=== PATIENT | female | born 1950 | race Caucasian/White ===

== ENCOUNTER 2018-12-29 06:05 | Inpatient (IN) | payer MEDICARE, BC | END 2019-01-02 11:27 | disposition home or self-care (01) | LOC: PAS IN 06:05 → ORTHO 4S 14:15 | PROC: 0SRC0J9 Replacement of Right Knee Joint with Synthetic Substitute, Cemented, Open Approach (ICD-10-PCS; principal; 2018-12-29 09:05) | DX: M17.11 Unilateral primary osteoarthritis, right knee (principal); D62 Acute posthemorrhagic anemia ==

== ENCOUNTER 2022-04-08 07:02 | Inpatient (IN) | payer MEDICARE, BC ==
[2022-04-02 10:58] LABS: BASOPHILS % (AUTO) 0.7 % (0-1); EOSINOPHILS # (AUTO) 0.2 X10'3 (0-0.9); EOSINOPHILS % (AUTO) 3.5 % (0-6); LYMPHOCYTES # (AUTO) 1.6 X10'3 (1.1-4.8); LYMPHOCYTES % (AUTO) 30.7 % (21-51); MEAN CORPUSCULAR HGB CONC 33.3 g/dL (33.0-36.5); MEAN PLATELET VOLUME 8.4 FL (7.4-10.4); MONOCYTES # (AUTO) 0.5 X10'3 (0-0.9); MONOCYTES % (AUTO) 9.2 % (2-12); NEUTROPHILS # (AUTO) 2.9 X10'3 (1.8-7.7); NEUTROPHILS % (AUTO) 55.9 % (42-75); PRE OP HEMATOCRIT 42.7 % (35.0-45.0); PRE OP HEMOGLOBIN 14.2 g/dL (12.0-16.0); PRE OP PLATELET COUNT 243 X10'3 (140-440); RED BLOOD COUNT 4.45 X10'6 (4.20-5.60); RED CELL DISTRIBUTION WIDTH 13.6 % (11.5-14.5)
[2022-04-02 11:09] LABS: ALBUMIN 4.1 G/DL (3.4-5.0); ALBUMIN/GLOBULIN RATIO 1.1 (1.1-1.5); ALKALINE PHOSPHATASE 187 IU/L (46-116); BLOOD UREA NITROGEN 22 MG/DL (7-18); BUN/CREATININE RATIO 26.5 (6.6-38.0); CALCIUM 9.3 MG/DL (8.5-10.1); CHLORIDE 106 MMOL/L (99-107); CREATININE 0.83 MG/DL (0.40-0.90); PRE OP ALT 35 U/L (30-65); PRE OP ANION GAP 13 (8-16); PRE OP AST 29 U/L (10-37); PRE OP BILIRUB, TOTAL 0.5 MG/DL (0.0-1.0); PRE OP GLUCOSE 90 MG/DL (70-104); PRE OP POTASSIUM 3.9 MMOL/L (3.4-5.1); PRE OP SODIUM 144 MMOL/L (135-145); TOTAL CARBON DIOXIDE 25.1 MMOL/L (24-32); TOTAL PROTEIN 7.7 G/DL (6.4-8.2); eGFR 67 ML/MIN
[2022-04-08] VITALS (22 sets, daily range): BP systolic 124–175; BP diastolic 47–118
[~2022-04-08] VITALS: Ht 162.6 cm; Wt 99.8 kg
--- NOTE | 2022-04-08 05:30 | NUR ---
CSM: RADIAL AND PEDAL PULSES PALPABLE SKIN CDI, WARM TO TOUCH. PATIENT READ THE INFORMATION BOOKLET GIVEN.
[~2022-04-08 07:02] MED LIST: ACET-3414 PO; ASCO125T PO; ASPI-1265 PO; CBD OIL PO; CBD OINTMENT TD; CHOL200012 PO; IBUP-860 PO; NAPR220C62 PO; ceFAZolin inj. 2,000 MG in dextrose 5%-water 100 ML IV ONE; famotidine 20mg tablet PO ONE; ringers solution, lacted 1,000 ML IV SCH; tranexamic acid 650mg tablet PO ONE; vancomycin 1,500 MG in NS 300ml IV soln IV ONE
[2022-04-08] MEDS ORDERED: ketorolac trometh. 30mg/ml inj. ONE (09:49)
[2022-04-08] MEDS ORDERED: ROPIVAcaine 0.5% (5mg/ml) 30ml vial ONE ×2 (09:49→11:13)
[2022-04-08] MEDS ORDERED: acetaminophen 1,000mg/100ml IV 100 ML IV PRN (10:25)
[2022-04-08] MEDS ORDERED: ROPIVAcaine 0.2%/PF PUMP/bolus 545 ML INTERSCALE SCH (10:25)
[2022-04-08] MEDS ORDERED: morphine 4 MG/ML inj SYRINge IV PRN (10:25)
[2022-04-08] MEDS ORDERED: morphine 2 MG/ML inj. syringe IV PRN (10:25)
[2022-04-08] MEDS ORDERED: hydrALAZINE 20mg/ml inj. IV PRN (10:25)
[2022-04-08] MEDS ORDERED: meperidine/PF 25mg/ml syringe IV PRN ×3 (10:25)
[2022-04-08] MEDS ORDERED: ringers solution, lacted 1,000 ML IV SCH (10:25)
[2022-04-08] MEDS ORDERED: proCHLORperazine 10 MG/2 ml inj IV PRN (10:25)
[2022-04-08] MEDS ORDERED: labetalol 20mg/4ml (5mg/ml) syringe IV PRN (10:25)
[2022-04-08] MEDS ORDERED: ondansetron/PF 4mg/2ml inj IV PRN ×2 (10:25→12:55)
[2022-04-08] MEDS ORDERED: ROPIVAcaine 0.2% (10 MG/5 ML) BOLUS INJECTION INTERSCALE PRN (10:25)
[2022-04-08] MEDS ORDERED: fentaNYL/PF 50MCG/1 ML 2ML syringe ONE (10:32)
[2022-04-08] MEDS ORDERED: midazolam 1 mg/ML 2ml injection ONE (10:32)
[2022-04-08] MEDS ORDERED: LIDOcaine 2% 5ml jelly ONE (10:33)
[2022-04-08] MEDS ORDERED: LIDOcaine 2% (20mg/ml) 5ml vial ONE (11:13)
[2022-04-08] MEDS ORDERED: propofol inj 20 ML IV ONE (11:13)
[2022-04-08] MEDS ORDERED: LIDOcaine 1%/PF 5ML 10 MG/ML VIAL ONE (11:13)
[2022-04-08] MEDS ORDERED: ondansetron/PF 4mg/2ml inj ONE (11:23)
[2022-04-08] MEDS ORDERED: dexamethasone sod phosphate 4mg/ml inj. ONE (11:23)
[2022-04-08] MEDS ORDERED: CBD TD PRN (12:55)
[2022-04-08] MEDS ORDERED: acetaminophen 325mg tablet PO PRN (12:55)
[2022-04-08] MEDS ORDERED: oxyCODONE IR 5mg (immed. release) tablet PO PRN (12:55)
[2022-04-08] MEDS ORDERED: bisacodyl 10mg suppository rectal RC PRN (12:55)
[2022-04-08] MEDS ORDERED: [UNRECOGNIZED DRUG - OTHER] PO PRN (12:55)
[2022-04-08] MEDS ORDERED: HYDROmorphone 1 mg/ml syringe IV PRN (12:55)
[2022-04-08] MEDS ORDERED: magnesium hydroxide 30ml (MOM) UD suspension PO PRN (12:55)
[2022-04-08] MEDS ORDERED: HYDROmorphone inj. 0.5 MG/0.5 ML DISP.SYRIN IV PRN (12:55)
[2022-04-08] MEDS ORDERED: diphenhydrAMINE 25mg capsule PO PRN ×2 (12:55)
[2022-04-08] MEDS ORDERED: naloxone 0.4 mg/ml inj IV PRN (12:55)
[2022-04-08] MEDS ORDERED: ACETAMINOPHEN PO PRN (12:55)
[2022-04-08] MEDS ORDERED: CBD OIL PO SCH (12:55)
[2022-04-08] MEDS ORDERED: DIPHENHYDRAMINE PO PRN (12:55)
[2022-04-08] MEDS: potassium cl 20mEq in 1/2 NS 1,000 ML IV SCH ×2 (12:55→20:25)
--- NOTE | 2022-04-08 12:55 | NUR ---
Received from OR via ORTHO BED, accompanied by Anesthesiologist DR MUELLER and report given by Anesthesiolgist. PT PLACED ON O2 AND MONITOR, S/P RIGHT TSA, GENERAL ANESTHESIA AND RIGHT INTERSCALING BLOCK, GOOD CSMS TO RIGHT UPPER EXTREMITY, PT DENIES ANY PAIN OR NAUSEA, RIGHT SHOULDER DREESING CDI AND COVERED WITH WRAP AND ICE PACK IN PLACE, WILL ATTACH ONQ PUMP, RIGHT ARM IN SHOULDER IMMOBILIZER, VSS, WILL CONTINUE TO ASSESS.
--- NOTE | 2022-04-08 14:35 | NUR ---
Report called to receiving nurse. Transferred via ORTHO BED TO ROOM 4023B Belongings . Special Issues communicated to receiving nurse. PT DOING WELL, STILL DENIES PAIN OR NAUSEA, SITTING UP IN BED TOLERATING SIPS OF WATER.
[2022-04-08] MEDS: acetaminophen 325mg tablet PO SCH ×2 (16:59→20:25)
[2022-04-08] MEDS: ceFAZolin/D5W- 1GM premix 50 ML IV SCH (17:03)
--- NOTE | 2022-04-08 18:35 | NUR ---
Problems reprioritized. Patient report given, questions answered & plan of care reviewed with
[2022-04-08] MEDS ORDERED: vancomycin/NS 1 GM ADD-VANTAGE 250 ML IV SCH (20:00)
[2022-04-08] MEDS ORDERED: sennosides 8.6mg tablet PO SCH (21:00)
[2022-04-08] MEDS: oxyCODONE IR 5mg (immed. release) tablet PO PRN (21:32)
[2022-04-09] MEDS: ceFAZolin/D5W- 1GM premix 50 ML IV SCH (00:44)
[2022-04-09] MEDS: oxyCODONE IR 5mg (immed. release) tablet PO PRN ×3 (01:41→14:29)
[2022-04-09] MEDS: acetaminophen 325mg tablet PO SCH ×3 (01:41→14:00)
[2022-04-09 02:00] VITALS: BP 125/36
[2022-04-09 06:00] VITALS: BP 128/51
[2022-04-09 06:31] LABS: BASOPHILS % (AUTO) 0.1 % (0-1); EOSINOPHILS % (AUTO) 0 % (0-6); HEMATOCRIT 33.9 % (35.0-45.0); HEMOGLOBIN 11.5 g/dl (12.0-16.0); LYMPHOCYTES % (AUTO) 10.3 % (21-51); MEAN CORPUSCULAR HEMOGLOBIN 32.9 PG (27.0-31.0); MEAN CORPUSCULAR HGB CONC 34.1 g/dL (33.0-36.5); MEAN CORPUSCULAR VOLUME 96.8 FL (78-98); MEAN PLATELET VOLUME 8.3 FL (7.4-10.4); MONOCYTES # (AUTO) 1.2 X10'3 (0-0.9); MONOCYTES % (AUTO) 11.8 % (2-12); NEUTROPHILS # (AUTO) 7.9 X10'3 (1.8-7.7); NEUTROPHILS % (AUTO) 77.8 % (42-75); PLATELET COUNT 217 X10'3 (140-440); RED CELL DISTRIBUTION WIDTH 13.3 % (11.5-14.5); WHITE BLOOD COUNT 10.1 X10'3 (4.5-11.0)
--- NOTE | 2022-04-09 06:35 | NUR ---
Problems reprioritized. Patient report given, questions answered & plan of care reviewed with deepa Hinojosa.
[2022-04-09 07:13] LABS: ANION GAP 10 (8-16); CHLORIDE 111 MMOL/L (99-107); POTASSIUM 4.2 MMOL/L (3.5-5.1); SODIUM 144 MMOL/L (135-145); TOTAL CARBON DIOXIDE 23.3 MMOL/L (24-32)
[2022-04-09] MEDS ORDERED: non-formulary drug (Cholecalciferol (Vitamin D3) (Vitamin D3) 1 CAP) PO SCH (08:00)
[2022-04-09] MEDS ORDERED: cholecalciferol (vitamin D3) 1,000 unit (25mcg) tablet PO SCH (08:00)
[2022-04-09] MEDS ORDERED: ascorbic acid 500mg tablet PO SCH (08:00)
[2022-04-09] MEDS ORDERED: aspirin 325mg tablet PO SCH (08:30)
[2022-04-09 10:00] VITALS: BP 126/55
--- NOTE | 2022-04-09 14:43 | NUR ---
Discharge instructions given to patient and her present at bedside. I discussed about the OnQ use, when to titrate, when to remove the catheter connected to OnQ ball, and how to remove it. I also discussed when to call the doctor and what needs to be reported to the doctor. Patient stated she already has follow up appointment and pain medicine prescription as well as the aspirin. Encouraged patient to clarify order of Aspirin 81 mg if this is what the doctor really wants for her versus the 325 mg of Aspirin. Peripheral IV catheter removed, tip intact. Instructed patient to ensure they have all belongings with them before leaving the hospital.
[2022-04-09] MEDS ORDERED: celeCOXIB 100mg capsule PO SCH (20:00)
[2022-04-10] MEDS ORDERED: acetaminophen 325mg tablet PO PRN (12:55)
== END 2022-04-09 14:50 | disposition home or self-care (01) | DRG 483 ==
LOC: PAS IN 07:02 → ORTHO 4S 14:45
PROVIDERS: ADMIT Orthopaedic Surgery; ATTEND Orthopaedic Surgery
PROC: 0LS30ZZ Reposition Right Upper Arm Tendon, Open Approach (ICD-10-PCS; 2022-04-08)
PROC: 3E0T3BZ Introduction of Anesthetic Agent into Peripheral Nerves and Plexi, Percutaneous Approach (ICD-10-PCS; 2022-04-08)
PROC: 0RRJ00Z Replacement of Right Shoulder Joint with Reverse Ball and Socket Synthetic Substitute, Open Approach (ICD-10-PCS; principal; 2022-04-08 10:24)
DX: M19.011 Primary osteoarthritis, right shoulder (principal); M75.101 Unspecified rotator cuff tear or rupture of right shoulder, not specified as traumatic; M65.811 Other synovitis and tenosynovitis, right shoulder
CPT/HCPCS: 36415; 80051; 80053; 82948; 85025; 87081; 97116; 97161; 97530; A4565; A4618; A7000; C1776; G0378; J0690; J1100; J1885; J2250; J2405; J2704; J2795; J3010; J3370; J3480; J3490; J7040; J7060; J7120; U0003; U0005

== ENCOUNTER 2022-11-11 08:35 | Inpatient (IN) | payer MEDICARE, BC ==
[2022-11-04 10:44] LABS: BASOPHILS % (AUTO) 0.6 % (0-1); EOSINOPHILS # (AUTO) 0.3 X10'3 (0-0.9); EOSINOPHILS % (AUTO) 4.9 % (0-6); LYMPHOCYTES # (AUTO) 1.8 X10'3 (1.1-4.8); LYMPHOCYTES % (AUTO) 27.7 % (21-51); MEAN CORPUSCULAR HEMOGLOBIN 32.1 PG (27.0-31.0); MEAN CORPUSCULAR HGB CONC 33.5 g/dL (33.0-36.5); MEAN CORPUSCULAR VOLUME 95.8 FL (78-98); MEAN PLATELET VOLUME 7.3 FL (7.4-10.4); MONOCYTES # (AUTO) 0.7 X10'3 (0-0.9); MONOCYTES % (AUTO) 10.8 % (2-12); NEUTROPHILS # (AUTO) 3.7 X10'3 (1.8-7.7); PRE OP HEMATOCRIT 41.3 % (35.0-45.0); PRE OP HEMOGLOBIN 13.8 g/dL (12.0-16.0); PRE OP PLATELET COUNT 306 X10'3 (140-440); RED BLOOD COUNT 4.31 X10'6 (4.20-5.60); RED CELL DISTRIBUTION WIDTH 13.2 % (11.5-14.5)
[2022-11-04 10:58] LABS: ALBUMIN 3.9 G/DL (3.4-5.0); ALBUMIN/GLOBULIN RATIO 1.1 (1.1-1.5); ALKALINE PHOSPHATASE 184 IU/L (46-116); BLOOD UREA NITROGEN 18 MG/DL (7-18); CALCIUM 9.6 MG/DL (8.5-10.1); CHLORIDE 105 MMOL/L (99-107); CREATININE 0.82 MG/DL (0.40-0.90); PRE OP ALT 33 U/L (30-65); PRE OP ANION GAP 9 (8-16); PRE OP AST 25 U/L (10-37); PRE OP BILIRUB, TOTAL 0.5 MG/DL (0.0-1.0); PRE OP GLUCOSE 104 MG/DL (70-104); PRE OP POTASSIUM 3.8 MMOL/L (3.4-5.1); PRE OP SODIUM 141 MMOL/L (135-145); TOTAL CARBON DIOXIDE 27.5 MMOL/L (24-32); TOTAL PROTEIN 7.4 G/DL (6.4-8.2); eGFR 68 ML/MIN
[~2022-11-11] VITALS: Ht 162.6 cm; Wt 104.1 kg
[2022-11-11] VITALS (19 sets, daily range): BP systolic 120–153; BP diastolic 64–91
[~2022-11-11 08:35] MED LIST changes: -ASCO125T PO; -CBD OIL PO; -CBD OINTMENT TD; -CHOL200012 PO; -NAPR220C62 PO
--- NOTE | 2022-11-11 08:40 | NUR ---
PT STATES THT SHE USED THE OINTMENT IN HERT NOSE AND COMPLETED THE 5 SHOWERS PRIOR TO SURGERY. RADIAL PULSES WERE PALPABLE AND MARKED. PT STATES SHE HAD HER OTHER SHOULDER DONE RECENTLY AND DID NOT FEEL THE NEED TO WATCH THE VIDEO AGAIN.
[2022-11-11] MEDS ORDERED: meperidine/PF 25mg/ml syringe IV PRN ×3 (11:20)
[2022-11-11] MEDS ORDERED: labetalol 20mg/4ml (5mg/ml) syringe IV PRN (11:20)
[2022-11-11] MEDS ORDERED: ringers solution, lacted 1,000 ML IV SCH (11:20)
[2022-11-11] MEDS ORDERED: morphine 2 MG/ML inj. syringe IV PRN (11:20)
[2022-11-11] MEDS ORDERED: ondansetron/PF 4mg/2ml inj IV PRN ×2 (11:20→14:05)
[2022-11-11] MEDS ORDERED: morphine 4 MG/ML inj SYRINge IV PRN (11:20)
[2022-11-11] MEDS ORDERED: acetaminophen 1,000mg/100ml IV 100 ML IV PRN (11:20)
[2022-11-11] MEDS ORDERED: hydrALAZINE 20mg/ml inj. IV PRN (11:20)
[2022-11-11] MEDS ORDERED: proCHLORperazine 10 MG/2 ml inj IV PRN (11:20)
[2022-11-11] MEDS ORDERED: FENTANYL CITRATE/PF 50 MCG/1 ML VIAL ONE (11:22)
[2022-11-11] MEDS ORDERED: midazolam 1 mg/ML 2ml injection ONE (12:21)
[2022-11-11] MEDS ORDERED: ondansetron/PF 4mg/2ml inj ONE (13:00)
[2022-11-11] MEDS ORDERED: LIDOcaine 2% (20mg/ml) 5ml vial ONE (13:00)
[2022-11-11] MEDS ORDERED: propofol inj 20 ML IV ONE (13:00)
[2022-11-11] MEDS ORDERED: LIDOcaine 1%/PF 5ML 10 MG/ML VIAL ONE (13:00)
[2022-11-11] MEDS ORDERED: ROPIVAcaine 0.5% (5mg/ml) 30ml vial ONE ×2 (13:00→13:23)
[2022-11-11] MEDS ORDERED: dexamethasone sod phosphate 4mg/ml inj. ONE (13:00)
[2022-11-11] MEDS ORDERED: ketorolac trometh. 30mg/ml inj. ONE (13:23)
[2022-11-11] MEDS ORDERED: ROPIVAcaine 0.5% (5mg/ml) 30ml vial IJ ONE (13:30)
[2022-11-11] MEDS ORDERED: ketorolac tromethamine 15mg/ml inj. IM ONE (13:32)
[2022-11-11] MEDS ORDERED: fentaNYL /PF 50mcg/ml 5ml ampule ONE (13:58)
[2022-11-11] MEDS ORDERED: acetaminophen 325mg tablet PO PRN (14:05)
[2022-11-11] MEDS ORDERED: bisacodyl 10mg suppository rectal RC PRN (14:05)
[2022-11-11] MEDS ORDERED: ROPIVAcaine 0.2% (10 MG/5 ML) BOLUS INJECTION INTERSCALE PRN (14:05)
[2022-11-11] MEDS ORDERED: magnesium hydroxide 30ml (MOM) UD suspension PO PRN (14:05)
[2022-11-11] MEDS ORDERED: HYDROmorphone 1 mg/ml syringe IV PRN (14:05)
[2022-11-11] MEDS ORDERED: naloxone 0.4 mg/ml inj IV PRN (14:05)
[2022-11-11] MEDS ORDERED: diphenhydrAMINE 25mg capsule PO PRN ×2 (14:05)
[2022-11-11] MEDS ORDERED: DIPHENHYDRAMINE PO PRN (14:05)
[2022-11-11] MEDS ORDERED: [UNRECOGNIZED DRUG - OTHER] PO PRN (14:05)
[2022-11-11] MEDS ORDERED: HYDROmorphone inj. 0.5 MG/0.5 ML DISP.SYRIN IV PRN (14:05)
[2022-11-11] MEDS ORDERED: ACETAMINOPHEN PO PRN (14:05)
[2022-11-11] MEDS ORDERED: ROPIVAcaine 0.2%/PF PUMP/bolus 545 ML INTERSCALE SCH (14:05)
[2022-11-11] MEDS ORDERED: HYDROcodone/acetaminophen 10/325mg tab PO PRN ×2 (14:05)
--- NOTE | 2022-11-11 14:19 | NUR ---
Received from OR via BED IN STABLE CONDITION , accompanied by Anesthesiologist and FUEL CELL SYSTEMS ENGINEER report given by FUEL CELL SYSTEMS ENGINEER AND Anesthesiolgist. Addendum: 11/11/22 at 1454 by Anneliese Elder RN Amended: Links added.
--- NOTE | 2022-11-11 15:49 | NUR ---
PATIENT DISCHARGED FROM PACU IN STABLE CONDITION AFTER REPORT GIVEN TO RN TAKING OVER PATIENTS CARE. PATIENT TRANSFERRED TO ROOM 346A VIA BED WITH ORDERLYX2. Addendum: 11/11/22 at 1614 by Anneliese Elder RN Amended: Links added.
[2022-11-11] MEDS: oxyCODONE IR 5mg (immed. release) tablet PO PRN ×2 (16:05→20:41)
[2022-11-11] MEDS: ceFAZolin/D5W- 1GM premix 50 ML IV SCH (16:06)
--- NOTE | 2022-11-11 18:31 | NUR ---
GAVE REPORT TO JOSÉ KOO
[2022-11-11] MEDS ORDERED: vancomycin/NS 1 GM ADD-VANTAGE 250 ML IV SCH (20:00)
[2022-11-11] MEDS: potassium cl 20mEq in 1/2 NS 1,000 ML IV SCH ×2 (20:38→22:05)
[2022-11-11] MEDS: acetaminophen 325mg tablet PO SCH (20:40)
[2022-11-11] MEDS ORDERED: sennosides 8.6mg tablet PO SCH (21:00)
[2022-11-12] MEDS: ceFAZolin/D5W- 1GM premix 50 ML IV SCH (01:03)
[2022-11-12 01:30] VITALS: BP 138/72
[2022-11-12] MEDS: acetaminophen 325mg tablet PO SCH ×2 (02:10→07:02)
[2022-11-12 06:00] VITALS: BP 128/61
[2022-11-12] MEDS: potassium cl 20mEq in 1/2 NS 1,000 ML IV SCH (06:05)
--- NOTE | 2022-11-12 06:05 | NUR ---
Problems reprioritized. Patient report given, questions answered & plan of care reviewed with JOSÉ Sunshine.
--- NOTE | 2022-11-12 06:15 | NUR ---
RECEIVED REPORT FROM JOSÉ KOO
[2022-11-12] MEDS: oxyCODONE IR 5mg (immed. release) tablet PO PRN ×2 (07:03→11:25)
[2022-11-12] MEDS ORDERED: aspirin 325mg tablet PO SCH (08:30)
[2022-11-12 08:49] LABS: ANION GAP 9 (8-16); CHLORIDE 106 MMOL/L (99-107); POTASSIUM 3.9 MMOL/L (3.5-5.1); SODIUM 140 MMOL/L (135-145)
[2022-11-12 08:52] LABS: HEMOGLOBIN 12.3 g/dl (12.0-16.0); WHITE BLOOD COUNT 13.6 X10'3 (4.5-11.0)
[2022-11-12 08:53] LABS: BASOPHILS % (AUTO) 0.1 % (0-1); EOSINOPHILS % (AUTO) 0 % (0-6); HEMATOCRIT 36.7 % (35.0-45.0); LYMPHOCYTES # (AUTO) 1.3 X10'3 (1.1-4.8); LYMPHOCYTES % (AUTO) 9.6 % (21-51); MEAN CORPUSCULAR HEMOGLOBIN 32.4 PG (27.0-31.0); MEAN CORPUSCULAR HGB CONC 33.7 g/dL (33.0-36.5); MEAN CORPUSCULAR VOLUME 96.4 FL (78-98); MEAN PLATELET VOLUME 7.7 FL (7.4-10.4); MONOCYTES # (AUTO) 1.7 X10'3 (0-0.9); MONOCYTES % (AUTO) 12.5 % (2-12); NEUTROPHILS # (AUTO) 10.6 X10'3 (1.8-7.7); NEUTROPHILS % (AUTO) 77.8 % (42-75); PLATELET COUNT 268 X10'3 (140-440); RED CELL DISTRIBUTION WIDTH 13.3 % (11.5-14.5)
--- NOTE | 2022-11-12 11:48 | NUR ---
Joint surgery consult: Pt s/p L shoulder surgery this admit per EMR. Pt seen by FAYE for written/verbal high protein diet ed w/ RD contact information provided. FAYE encouraged pt to contact dietitian's office if further questions/concerns. Addendum: 11/12/22 at [address] Amended: Links added.
--- NOTE | 2022-11-12 12:42 | NUR ---
PT D/C WITH INSTRUCTIONS UNDERSTANDING OF INSTRUCTIONS AND WITH ALL BELONGINGS, WITH IV TAKEN OUT IN WHEEL CHAIR TO PRIVATE VEHICLE TO GO HOME AND F/U W/SURGEON
[2022-11-13] MEDS ORDERED: acetaminophen 325mg tablet PO PRN (14:05)
== END 2022-11-12 12:04 | disposition home or self-care (01) | DRG 483 ==
LOC: PAS IN 08:35 → SUR 3N 16:00
PROVIDERS: ADMIT Orthopaedic Surgery; ATTEND Orthopaedic Surgery
PROC: 0LS40ZZ Reposition Left Upper Arm Tendon, Open Approach (ICD-10-PCS; 2022-11-11)
PROC: 3E0T3BZ Introduction of Anesthetic Agent into Peripheral Nerves and Plexi, Percutaneous Approach (ICD-10-PCS; 2022-11-11)
PROC: 0RRK00Z Replacement of Left Shoulder Joint with Reverse Ball and Socket Synthetic Substitute, Open Approach (ICD-10-PCS; principal; 2022-11-11 12:12)
DX: M19.012 Primary osteoarthritis, left shoulder (principal); M65.812 Other synovitis and tenosynovitis, left shoulder; R74.8 Abnormal levels of other serum enzymes; M75.102 Unspecified rotator cuff tear or rupture of left shoulder, not specified as traumatic; Z79.899 Other long term (current) drug therapy
CPT/HCPCS: 36415; 80051; 80053; 82948; 85025; 87081; 97161; 97530; A4565; A4618; A7000; C1776; G0378; J0690; J1100; J1885; J2250; J2405; J2704; J2795; J3010; J3370; J3480; J3490; J7040; J7060; J7120

== ENCOUNTER 2024-07-16 12:27 | Outpatient (CLI) | payer MEDICARE, BC ==
[~2024-07-16 12:27] MED LIST changes: -ASPI-1265 PO; -ceFAZolin inj. 2,000 MG in dextrose 5%-water 100 ML IV ONE; -famotidine 20mg tablet PO ONE; -ringers solution, lacted 1,000 ML IV SCH; -tranexamic acid 650mg tablet PO ONE; -vancomycin 1,500 MG in NS 300ml IV soln IV ONE
== END 2024-07-16 23:59 | disposition home or self-care (01) ==
LOC: RAD 12:27
PROVIDERS: ATTEND Podiatrist Foot & Ankle Surgery
DX: M19.072 Primary osteoarthritis, left ankle and foot (principal); M21.42 Flat foot [pes planus] (acquired), left foot; M79.672 Pain in left foot
CPT/HCPCS: 73700